=== PATIENT | female | born 2000 | race Hispanic/Latino ===

== ENCOUNTER 2021-06-23 02:30 | Day surgery (SDC) | payer OTHER ==
[2021-06-23 02:55] VITALS: BMI 31.2
[2021-06-23 05:52] LABS: ALT (SGPT) 10 U/L (8-55); AST (SGOT) 14 U/L (5-30); Albumin 3.7 g/dL (3.5-5.0); Alkaline Phosphatase 84 U/L (40-100); Anion Gap 12 mmol/L (10-20); BUN (Urea Nitrogen) 8 mg/dL (8.4-21.0); Bilirubin, Total 0.3 mg/dL (0.2-1.2); Calc. Creatinine Clearance 188 mL/min (70-130); Calcium 8.9 mg/dL (7.8-10.44); Carbon Dioxide 23 mmol/L (22-29); Chloride 107 mmol/L (98-107); Globulin 2.6 g/dL (2.4-3.5); Glucose 84 mg/dL (70-105); Lipase 33 U/L (8-78); Potassium 3.8 mmol/L (3.5-5.1); Protein, Total 6.3 g/dL (6.0-8.3); Sodium 138 mmol/L (136-145)
[2021-06-23] MEDS ORDERED: hydrALAZINE 20 MG/ML VIAL SLOW IVP PRN (06:27)
== END 2021-06-23 06:23 | disposition home or self-care (01) ==
LOC: CSHLD/OP 02:30
PROVIDERS: ATTEND Advanced Practice Midwife
DX: O99.891 Other specified diseases and conditions complicating pregnancy (principal); R10.10 Upper abdominal pain, unspecified; N13.30 Unspecified hydronephrosis; O21.2 Late vomiting of pregnancy; O99.612 Diseases of the digestive system complicating pregnancy, second trimester; K80.20 Calculus of gallbladder without cholecystitis without obstruction; O32.1XX0 Maternal care for breech presentation, not applicable or unspecified; Z3A.25 25 weeks gestation of pregnancy
CPT/HCPCS: 76705; 76815; 82150; 83690; 99282

== ENCOUNTER 2023-03-31 08:34 | Day surgery (SDC) | payer MEDICAID, OTHER ==
[2023-03-31] MEDS ORDERED: Acetaminophen 500 MG TAB ONE (08:45)
[2023-03-31] MEDS ORDERED: Iron Sucrose Complex 500 MG in Sodium Chloride 0.9% 250 ML 250 ML IVPB SCH (09:00)
[2023-03-31] MEDS ORDERED: Acetaminophen 500 MG TAB PO SCH (09:00)
== END 2023-03-31 13:50 | disposition home or self-care (01) ==
LOC: CSHRAD 08:34 → CSHSDC/OP 13:50
PROVIDERS: ATTEND Student in an Organized Health Care Education/Training Program
DX: O99.019 Anemia complicating pregnancy, unspecified trimester (principal); D64.9 Anemia, unspecified; Z3A.00 Weeks of gestation of pregnancy not specified
CPT/HCPCS: J1756; J7050

== ENCOUNTER 2023-04-01 15:57 | Emergency (ER) | payer OTHER ==
[~2023-04-01 15:57] MED LIST: Iopamidol 370 76% 100 ML VIAL ONE
[2023-04-01 17:00] LABS: #Neutrophils 9.2 10x3/uL (1.5-8.4); %Basophils 0.2 % (0.0-2.0); %Eosinophils 0.2 % (0.0-6.0); %Lymphocytes 15.5 % (18.0-47.0); %Neutrophils 75.4 % (40.0-75.0); Hematocrit 30.5 % (34.9-44.5); Hemoglobin 10.1 g/dL (12.0-15.5); Mean Corpuscular HGB CONC 33.1 g/dL (32.0-36.0); Mean Corpuscular Hemoglobin 30.2 pg (27.0-33.0); Mean Corpuscular Volume 91.3 fl (81.6-98.3); Mean Platelet Volume 11.1 fl (7.4-10.4); Platelet Count 246 10x3/uL (150-450); RBC Distribution Width 13.6 % (11.5-14.5); Red Blood Cell (RBC) Count 3.34 10x6/uL (3.90-5.03); White Blood Cell (WBC) Count 12.1 10x3/uL (3.5-10.5)
[2023-04-01 17:14] LABS: ALT (SGPT) 7 U/L (8-55); AST (SGOT) 13 U/L (5-34); Albumin 3.3 g/dL (3.5-5.0); Alkaline Phosphatase 106 U/L (40-110); Anion Gap 13 mmol/L (10-20); BUN (Urea Nitrogen) 6 mg/dL (7.0-18.7); Bilirubin, Total Less than 0.2 mg/dL (0.2-1.2); Calc. Creatinine Clearance 0 mL/min (70-130); Calcium 8.8 mg/dL (7.8-10.44); Carbon Dioxide 21 mmol/L (22-29); Chloride 108 mmol/L (98-107); Estimated GFR 124; Globulin 3.2 g/dL (2.4-3.5); Glucose 85 mg/dL (70-105); Magnesium 1.8 mg/dL (1.6-2.6); Potassium 4.1 mmol/L (3.5-5.1); Protein, Total 6.5 g/dL (6.0-8.3); Sodium 138 mmol/L (136-145)
[2023-04-01 17:19] LABS: Troponin I Less than 0.010 ng/mL (< 0.028)
[2023-04-01] MEDS ORDERED: Acetaminophen 325 MG TAB ONE (18:03)
[2023-04-01] MEDS ORDERED: Ondansetron PF 4 MG/2 ML Vial ONE (18:30)
== END 2023-04-01 20:18 | disposition home or self-care (01) ==
LOC: CSHERS 15:57
DX: O99.891 Other specified diseases and conditions complicating pregnancy (principal); R07.9 Chest pain, unspecified; Z3A.30 30 weeks gestation of pregnancy
CPT/HCPCS: 71275; 80053; 83735; 84484; 85025; 85379; 93005; 96374; J2405; Q9967

== ENCOUNTER 2023-05-27 11:13 | Inpatient (IN) | payer OTHER, MEDICAID ==
[2023-05-27] MEDS ORDERED: Lidocaine 1% (PF) 30 ML VIAL SC PRN (11:33)
[2023-05-27] MEDS ORDERED: hydrALAZINE 20 MG/ML VIAL SLOW IVP PRN (11:33)
[2023-05-27] MEDS ORDERED: Diphenoxylate HCl/Atropine Tablet PO PRN (11:33)
[2023-05-27] MEDS ORDERED: Docusate 100 MG CAP PO PRN (11:33)
[2023-05-27] MEDS ORDERED: Tranexamic Acid 1,000 MG/10 ML VIAL IVP PRN (11:33)
[2023-05-27] MEDS ORDERED: Ondansetron PF 4 MG/2 ML Vial IVP PRN ×2 (11:33→17:38)
[2023-05-27] MEDS ORDERED: Promethazine HCl 25 MG/ML VIAL IM PRN ×2 (11:33→17:38)
[2023-05-27] MEDS ORDERED: Carboprost 250 MCG/ML AMP IM PRN (11:33)
[2023-05-27] MEDS ORDERED: fentaNYL 50 mcg/mL 1 mL Vial SLOW IVP PRN (11:33)
[2023-05-27] MEDS ORDERED: Acetaminophen 500 MG TAB PO PRN (11:33)
[2023-05-27] MEDS ORDERED: Misoprostol 200 MCG TAB PR PRN (11:33)
[2023-05-27] MEDS ORDERED: Methylergonovine 0.2 MG/ML VIAL IM PRN (11:33)
[2023-05-27] MEDS ORDERED: Ibuprofen 800 MG TAB PO PRN (11:33)
[2023-05-27] MEDS ORDERED: Oxytocin 30 units/NS 500 ML 500 ML IV SCH ×2 (11:45)
[2023-05-27 12:29] LABS: Hematocrit 33.8 % (34.9-44.5); Hemoglobin 11.5 g/dL (12.0-15.5); Mean Corpuscular Hemoglobin 30.9 pg (27.0-33.0); Mean Corpuscular Volume 90.9 fl (81.6-98.3); Mean Platelet Volume 11.6 fl (7.4-10.4); Platelet Count 208 10x3/uL (150-450); RBC Distribution Width 14.3 % (11.5-14.5); Red Blood Cell (RBC) Count 3.72 10x6/uL (3.90-5.03)
[2023-05-27 12:51] VITALS: BMI 36.0
[2023-05-27 12:58] LABS: Syphilis Antibody Nonreactive (Nonreactive); Syphilis Antibody Index 0.04 S/CO (<1.00 Non-Reactive)
[2023-05-27 13:00] LABS: HBSAg Index 0.15 S/CO (0-0.99); Hep B Surf Ag - L&D Non-Reactive S/CO (NonReactive)
[2023-05-27] MEDS ORDERED: fentaNYL/Ropivacaine Epidural 100 ML ONE (17:28)
[2023-05-27] MEDS ORDERED: diphenhydrAMINE 50 MG/ML VIAL IVP PRN (17:38)
[2023-05-27] MEDS ORDERED: Naloxone HCl 0.4 mg/ml Vial IVP PRN ×2 (17:38)
[2023-05-27] MEDS ORDERED: Moisturizing Cream (Eucerin) 113 GM JAR TOP PRN (17:38)
[2023-05-27] MEDS ORDERED: ePHEDrine Sulfate 50 MG/10 ML VIAL SLOW IVP PRN (17:38)
[2023-05-27] MEDS ORDERED: Lactated Ringer's 500 ML IV PRN (17:38)
[2023-05-27] MEDS ORDERED: fentaNYL 2 mcg/Ropivacaine 0.2% Epidural 100 ML CADD EPIDURAL SCH (17:45)
[2023-05-27] MEDS ORDERED: Communication Order-Pharmacy FS SCH (17:45)
[2023-05-27] MEDS ORDERED: Bupivacaine 0.25% HCL 30 ML VIAL ONE (18:07)
[2023-05-27] MEDS ORDERED: ePHEDrine Sulfate 50 MG/10 ML VIAL ONE (18:07)
[2023-05-27] MEDS ORDERED: Milk Of Magnesia 30 ML UDCUP PO PRN (23:58)
[2023-05-27] MEDS ORDERED: Bisacodyl 10 MG SUPP PR PRN (23:58)
[2023-05-28] MEDS: Lactated Ringer's 1,000 ML IV SCH (03:01)
[2023-05-28] MEDS ORDERED: Methylergonovine 0.2 MG/ML VIAL IM PRN (03:43)
[2023-05-28] MEDS: Ibuprofen 800 MG TAB PO SCH ×3 (04:50→20:28)
[2023-05-28] MEDS: Acetaminophen 325 MG TAB PO PRN ×2 (06:58→16:17)
[2023-05-28] MEDS: Ferrous Sulfate 325 MG TAB PO SCH ×2 (08:40→17:15)
[2023-05-28] MEDS: Prenatal Vitamin 1 TAB PO SCH (09:03)
[2023-05-28] MEDS ORDERED: Promethazine 25 MG TAB PO PRN (10:04)
[2023-05-28] MEDS ORDERED: HYDROcodone/Acetaminophen 5/325 mg Tablet PO SCH ×2 (11:00→20:30)
[2023-05-29] MEDS: Ibuprofen 800 MG TAB PO SCH (04:57)
[2023-05-29] MEDS: Ferrous Sulfate 325 MG TAB PO SCH (07:08)
[2023-05-29] MEDS: Prenatal Vitamin 1 TAB PO SCH (07:44)
[2023-05-29 07:55] VITALS: BP 100/59; TEMP 98.1
== END 2023-05-29 10:50 | disposition home or self-care (01) | DRG 807 ==
LOC: CSHLD 11:13 → CSHPP 05-28 02:08
PROVIDERS: ADMIT Emergency Medicine; ATTEND Emergency Medicine
PROC: 10E0XZZ Delivery of Products of Conception, External Approach (ICD-10-PCS; principal; 2023-05-27)
PROC: 10H07YZ Insertion of Other Device into Products of Conception, Via Natural or Artificial Opening (ICD-10-PCS; 2023-05-27)
DX: O42.02 Full-term premature rupture of membranes, onset of labor within 24 hours of rupture (principal); Z37.0 Single live birth; Z3A.38 38 weeks gestation of pregnancy; O99.02 Anemia complicating childbirth; D64.9 Anemia, unspecified
CPT/HCPCS: 51702; 85027; 86780; 86850; 86900; 86901; 87340; J2405; J2550; J2590; J3010; S0020

== ENCOUNTER 2023-11-22 09:38 | Emergency (ER) | payer OTHER | END 2023-11-22 10:32 | disposition admitted as inpatient to this hospital (09) | LOC: CSHERS 09:38 | DX: O03.4 Incomplete spontaneous abortion without complication (principal) | CPT/HCPCS: 36415; 76856; 80053; 84702; 85025; 86850; 86900; 86901; 88305; 93005; 99285; J0696; J1885; J2250; J2270; J2405; J3010; J7120 ==